=== PATIENT | male | born 1980 | race American Indian/Alaskan Native ===

== ENCOUNTER 2019-06-13 15:08 | Emergency (ER) | payer SELFPAY ==
[2019-06-13 15:46] VITALS: BP 151/96
== END 2019-06-13 18:00 | disposition left against medical advice (07) ==
LOC: ED 15:08
DX: I10 Essential (primary) hypertension (principal); Z53.21 Procedure and treatment not carried out due to patient leaving prior to being seen by health care provider
CPT/HCPCS: 93005; 93010